=== PATIENT | female | born 1975 | race American Indian/Alaskan Native ===

== ENCOUNTER 2022-06-21 09:08 | Emergency (ER) | payer OTHER ==
[2022-06-21 09:27] VITALS: BP 131/85
[2022-06-21] MEDS ORDERED: diphenhydrAMINE 25 MG/10 ML ORAL LIQUID PO ONE (12:23)
[2022-06-21] MEDS ORDERED: METOCLOPRAMIDE 10 MG TAB PO ONE (12:23)
[2022-06-21] MEDS ORDERED: dexAMETHasone 4 MG/ML VIAL IM ONE (12:23)
[2022-06-21] MEDS ORDERED: BUTALB/ACETAMINOPHEN/CAFFEINE TAB PO ONE (12:23)
[2022-06-21] MEDS ORDERED: ACETAMINOPHEN W/CODEINE 300-30 MG TAB PO ONE (13:58)
--- NOTE | 2022-06-21 14:02 | Emergency Department Report ---
ED Headache HPI - General Chief Complaint: Headache Stated Complaint: HEADACHE/VOMITTING Time Seen by Provider: 06/21/22 12:20 - History of Present Illness Initial Comments: 46-year-old black female with a past medical history of migraines and asthma presents to the emergency department for evaluation of 3-day history of headache along with nausea vomiting, floaters, and photophobia. She denies dizziness and fever. She states that headache at its worst is 10 out of 10. She states that she takes Imitrex at home and has taken it for the last 2 days without improvement. States that she gets headaches often and this headache is typical of her regular headache just lasting longer. Timing/Duration: other (3 days) Quality: severe Head Injury Location: frontal Recent Head Trauma: frequent headaches Modifying Factors: improves with: exposure to light Associated Symptoms: nausea/vomiting, vision changes. denies: confusion, fatigue, facial pain, fever/chills, flushing, loss of consciousness, nasal congestion, nasal drainage, numbness in legs/feet, rash, seizures, sinus infection, stiff neck, weakness Allergies/Adverse Reactions: Allergies haloperidol [From Haldol] Allergy (Verified 06/21/22 09:27) Anaphylaxis ketorolac [From Toradol] Allergy (Verified 06/21/22 09:27) Anaphylaxis prochlorperazine [From Compazine] Allergy (Verified 06/21/22 09:27) Anaphylaxis Home Medications: Ambulatory Orders Acetaminophen/Codeine [Tylenol /Codeine # 3 tab] 1 tab PO Q6H PRN #12 tab 06/21/22 Ondansetron [Zofran Odt] 4 mg PO Q8HR PRN #12 tab.rapdis 06/21/22 ED Review of Systems ROS: Stated complaint: HEADACHE/VOMITTING Other details as noted in HPI Comment: All other systems reviewed and negative Constitutional: denies: chills, fever Eyes: vision change ENT: denies: congestion Respiratory: denies: shortness of breath Cardiovascular: denies: chest pain, palpitations Gastrointestinal: denies: abdominal pain, nausea, vomiting Musculoskeletal: denies: back pain Neurological: headache. denies: weakness, numbness, paresthesias, confusion, abnormal gait ED Past Medical Hx - Medications Home Medications: Home Medications Medication Instructions Recorded Confirmed Last Taken Type Acetaminophen/Codeine [Tylenol 1 tab PO Q6H PRN #12 tab 06/21/22 Unknown Rx /Codeine # 3 tab] Ondansetron [Zofran Odt] 4 mg PO Q8HR PRN #12 tab.rapdis 06/21/22 Unknown Rx ED Physical Exam - General Limitations: No Limitations General appearance: alert, in no apparent distress - Head Head exam: Present: atraumatic, normocephalic - Eye Eye exam: Present: normal appearance. Absent: conjunctival injection, periorbital swelling, periorbital tenderness - ENT ENT exam: Present: normal exam, normal orophraynx - Neck Neck exam: Present: normal inspection, full ROM. Absent: tenderness, lymphadenopathy - Respiratory Respiratory exam: Present: normal lung sounds bilaterally. Absent: respiratory distress, wheezes, rales, rhonchi, stridor, chest wall tenderness - Cardiovascular Cardiovascular Exam: Present: tachycardia, normal heart sounds - GI/Abdominal GI/Abdominal exam: Present: soft, normal bowel sounds. Absent: distended, tenderness, guarding, rebound, rigid - Extremities Exam Extremities exam: Present: normal inspection, normal capillary refill - Back Exam Back exam: Present: normal inspection. Absent: CVA tenderness (R), CVA tenderness (L) - Neurological Exam Neurological exam: Present: alert, oriented X3, CN II-XII intact, normal gait, reflexes normal. Absent: motor sensory deficit - Expanded Neurological Exam Expanded Patient oriented to: Present: person, place Speech: Present: fluid speech Cranial nerves: EOM's Intact: Normal, Gag Reflex: Normal, Tongue Deviation: Normal Ataxia: Absent: yes Cerebellar function: Romberg: Normal Upper motor neuron: Pronator Drift: Normal Sensory exam: Upper Extremity Light Touch: Normal, Upper Extremity Temperature: Normal, Lower Extremity Light Touch: Normal, Lower Extremity Temperature: Normal Motor strength exam: RUE: 5, LUE: 5, RLE: 5, LLE: 5 Best Eye Response ([place]): (4) open spontaneously Best Motor Response ([place]): (6) obeys commands Best Verbal Response ([place]): (5) oriented [place] Total: 15 - Psychiatric Psychiatric exam: Present: normal affect, normal mood - Skin Skin exam: Present: warm, dry, intact, normal color ED Course Vital Signs 06/21/22 09:25 Temperature 98.5 F Pulse Rate 107 H Respiratory 18 Rate Blood Pressure 131/85 [Left] O2 Sat by Pulse 99 Oximetry - Reevaluation(s) Reevaluation #1: 06/21/22 13:59 Patient soundly asleep in room. When awakened, she states that headache is minimally improved. ED Medical Decision Making - Medical Decision Making 46-year-old black female with a past medical history of migraines and asthma presents to the emergency department for evaluation of 3-day history of headache along with nausea vomiting, floaters, and photophobia. She denies dizziness and fever. She states that headache at its worst is 10 out of 10. She states that she takes Imitrex at home and has taken it for the last 2 days without improvement. States that she gets headaches often and this headache is typical of her regular headache just lasting longer. Physical exam unremarkable. Headache improved after medications. Patient be discharged home with Tylenol 3 to use as needed for pain and advised to follow- up with neurology for further evaluation and management. He verbalizes understanding of and agreement with plan of care. Critical care attestation.: If time is entered above; I have spent that time in minutes in the direct care of this critically ill patient, excluding procedure time. ED Disposition Clinical Impression: Headache Qualifiers: Headache type: unspecified Headache chronicity pattern: acute headache Intractability: not intractable Qualified Code(s): R51.9 - Headache, unspecified Disposition: 01 HOME / SELF CARE / HOMELESS Is pt being admited?: No Does the pt Need Aspirin: No Condition: Stable Instructions: Migraine Headache, [id number], General Headache Without Cause, [id number] Additional Instructions: Take medications as prescribed. Increase intake of noncaffeinated fluids. Follow-up with your primary care provider or neurology for further evaluation and management. Return to the emergency department as needed Prescriptions: Acetaminophen/Codeine [Tylenol /Codeine # 3 tab] 1 tab PO Q6H PRN #12 tab PRN Reason: Headache Ondansetron [Zofran Odt] 4 mg PO Q8HR PRN #12 tab.rapdis PRN Reason: Nausea And Vomiting Referrals: BESSY GOODMAN MD [Primary Care Provider] - 3-5 Days HANDY BOLES MD [Staff Physician] - 3-5 Days Forms: Work/School Release Form(ED) Time of Disposition: 14:01
== END 2022-06-21 14:30 | disposition home or self-care (01) ==
LOC: ED 09:08
DX: G43.909 Migraine, unspecified, not intractable, without status migrainosus (principal); J45.909 Unspecified asthma, uncomplicated; Z88.8 Allergy status to other drugs, medicaments and biological substances; Z79.899 Other long term (current) drug therapy
CPT/HCPCS: 96372; 99282; J1100; Q0163